=== PATIENT | female | born 2000 | race Two or more races ===

== ENCOUNTER 2019-06-19 14:16 | Emergency (ER) | payer OTHER ==
[~2019-06-19] VITALS: Ht 152.4 cm; Wt 61.2 kg
[2019-06-19] MEDS ORDERED: DOLOGEN CAPLET1 EACH PO (18:08)
== END 2019-06-19 18:12 | disposition home or self-care (01) ==
LOC: ER 14:16
DX: M25.512 Pain in left shoulder (principal)